=== PATIENT | male | born 1965 | race Two or more races ===

== ENCOUNTER 2023-06-17 22:23 | Emergency (ER) | payer OTHER ==
[~2023-06-17] VITALS: Ht 185.4 cm; Wt 46.0 kg
[2023-06-18] MEDS ORDERED: KETOROLAC TROMETH 60MG/2ML VIAL IM ONE (03:45)
[2023-06-18] MEDS ORDERED: ACE3T PO (03:49)
[2023-06-18 05:17] VITALS: BP 153/89; PULSE 89; RESP 18; TEMP 97.7; O2SAT 99
== END 2023-06-18 04:39 | disposition home or self-care (01) ==
LOC: ER 22:23
DX: S92.424A Nondisplaced fracture of distal phalanx of right great toe, initial encounter for closed fracture (principal); I10 Essential (primary) hypertension; W01.0XXA Fall on same level from slipping, tripping and stumbling without subsequent striking against object, initial encounter; Y93.89 Activity, other specified; Y92.89 Other specified places as the place of occurrence of the external cause; Y99.8 Other external cause status
CPT/HCPCS: 73630; 96372; 99283; J1885; L3260